=== PATIENT | female | born 1955 | race Caucasian/White ===

== ENCOUNTER 2017-08-12 17:06 | Emergency (ER) | payer BC ==
[~2017-08-12] VITALS: Ht 165.1 cm; Wt 90.0 kg
[2017-08-12 17:08] VITALS: BP 134/70; PULSE 86; RESP 14; TEMP 98.6; O2SAT 98
[2017-08-12] MEDS ORDERED: ASPI-516 PO (17:19)
[2017-08-12] MEDS ORDERED: PROP10TA6 PO (17:19)
[2017-08-12] MEDS ORDERED: NEXI40CA PO (17:19)
[2017-08-12] MEDS ORDERED: LEXA10TA PO (17:22)
--- NOTE | 2017-08-12 17:41 | PD ---
HPI Chief Complaint: Injury Time Seen by Provider: 17:13 Travel History International Travel<30 days: No Contact w/Intl Traveler<30days: No Traveled to known affect area: No History of Present Illness HPI 62-year-old female arrives with severe pain in the right ankle after she fell in her bathroom. She was getting dressed when she heard a popping sound from the ankle and fell to the ground causing severe pain. She has been unable to walk. Active or passive range of motion is painful. Her pain is constant. She did not hit her head or cause injury otherwise in association with the fall. The fall occurred about 45 minutes prior to ER arrival. PFSH Past Medical History Anxiety: Yes Cancer: Yes (kidney and ovaryan) Cardiovascular Problems: Yes Chemotherapy: Yes (kidney/ovarian) Diminished Hearing: No Genitourinary: Yes Hypertension: Yes Medical other: Yes Neurologic: Yes Tetanus Vaccination: < 5 Years Influenza Vaccination: Yes ?: Not : 1 Past Surgical History Section: Yes (x1) Gynecologic Surgery: Yes Hysterectomy: Yes Social History Alcohol Use: No (pt denies ) Tobacco Use: No (quit 25 years ago) Substance Use: No Allergies-Medications (Allergen,Severity, Reaction): Coded Allergies: codeine (Verified Adverse Reaction, Unknown, nauseas, 08/12/17) Reported Meds & Prescriptions Reported Meds & Active Scripts Active Percocet (Oxycodone-Acetaminophen) 5-325 mg Tab 1 Tab PO Q6H PRN Reported Lexapro (Escitalopram Oxalate) 10 Mg Tab 10 Mg PO DAILY Aspirin 81 Mg Chew 81 Mg PO DAILY Propranolol (Propranolol HCl) 10 Mg Tab 10 Mg PO DAILY Nexium (Esomeprazole DR) 40 Mg Capdr 40 Mg PO DAILY Review of Systems Genitourinary: Positive: Other (history of ovarian cancer, recently underwent surgery) Musculoskeletal: Positive: Limited ROM, Pain Neurologic: No: Weakness, Dizziness, Syncope, Focal Abnormalities, Coordination Problem Physical Exam Narrative GENERAL: 60-year-old female well-nourished well-developed mild to moderate distress secondary to pain from fall pleasant cooperative SKIN: Focused skin assessment warm/dry. HEAD: Atraumatic. Normocephalic. MUSCULOSKELETAL: There is tenderness from the knee through the midportion of the foot on the right. There is swelling overlying the lateral malleolus on the right side. There is no obvious musculoskeletal deformity otherwise. 2+ dorsalis pedis bilaterally. Patient unable to ambulate due to pain NEUROLOGICAL: Awake and alert. No obvious cranial nerve deficits. Motor grossly within normal limits. Normal speech. PSYCHIATRIC: Appropriate mood and affect; insight and judgment normal. Data Data Last Documented VS Vital Signs Date Time Temp Pulse Resp B/P (MAP) Pulse Ox O2 Delivery O2 Flow Rate FiO2 08/12/17 18:30 97.9 76 16 130/78 (95) 99 08/12/17 17:19 Room Air Vital signs reviewed Orders Orders Ankle, Complete ([id number]) (08/12/17 17:22) Foot, Complete ([id number]) (08/12/17 17:22) Tibia/Fibula (Ap/Lat) (08/12/17 17:22) Ice / Cold Pack PRN (08/12/17 17:22) Splint Or Brace Apply/Monitor (08/12/17 18:13) Crutches (08/12/17 ) Ed Discharge Order (08/12/17 18:22) Fiberglass Short Leg Splint Ad (08/12/17 ) Fiberglass Sugartong Sp Ad Sl (08/12/17 ) MDM Medical Decision Making Medical Screen Exam Complete: Yes Emergency Medical Condition: Yes Medical Record Reviewed: Yes Differential Diagnosis ankle fracture, ankle sprain, foot fracture, proximal fibula fracture Narrative Course Last Impressions Tibia/Fibula X-Ray 08/12/171721 Signed Impressions: Service Date/Time: Saturday, August 12, 2017 17:36 - CONCLUSION: Nondisplaced distal shaft fibular fracture. Cliff Cardenas MD Foot X-Ray 08/12/171721 Signed Impressions: Service Date/Time: Saturday, August 12, 2017 17:28 - CONCLUSION: No evidence of recent bony injury. Cliff Cardenas MD Ankle X-Ray 08/12/171721 Signed Impressions: Service Date/Time: Saturday, August 12, 2017 17:33 - CONCLUSION: Nondisplaced distal fibular fracture. Cliff Cardenas MD long posterior crutches follow up upon returning home pt verbalized understanding along with , both amenable with plan Diagnosis Primary Impression: Fracture of distal fibula Qualified Codes: S82.831A - Other fracture of upper and lower end of right fibula, initial encounter for closed fracture Referrals: Orthopaedic Surgeon ANGULATED DISTAL FIBULAR FRACTURE Mold Maintenance Technician ANGULATED DISTAL FIBULAR FRACTURE Additional Instructions: PLEASE CALL TO MAKE AN APPOINTMENT WITH EITHER AN ORTHOPEDIC SURGEON OR A AIRPORT SALES AGENT EARLY NEXT WEEK, IDEALLY MONDAY OR MONDAY. PLEASE ELEVATE THE FOOT AT NIGHT AND APPLY ICE FOR COMFORT AND TO REDUCE SWELLING. Med/Other Pt SpecificInfo: Prescription(s) given Scripts Oxycodone-Acetaminophen (Percocet) 5-325 mg Tab 1 TAB PO Q6H Y for PAIN SCALE 6 TO 10, #12 TAB 0 Refills Prov: Cuba Worthington MD 08/12/17 Disposition: 01 DISCHARGE HOME Condition: Stable Cuba Worthington MD Aug 12, 2017 17:41
[2017-08-12] MEDS ORDERED: PERC5TAB12 PO (18:21)
[2017-08-12 18:30] VITALS: BP 130/78; TEMP 97.9
--- NOTE | 2017-08-12 18:37 | RADRPT ---
EXAM DATE/TIME: 08/12/2017 17:28 [facility] COMPARISON: No previous studies available for comparison. INDICATIONS : Pain post fall. MEDICAL HISTORY : None. SURGICAL HISTORY : None. ENCOUNTER: Initial ACUITY: 1 day PAIN SCORE: 5/10 LOCATION: Right Foot. FINDINGS: Three view examination of the right foot demonstrates no soft tissue swelling, dislocation, or fractu re. The tarsal bones appear intact. The interphalangeal and metatarsophalangeal joints are intact. The calcaneus is intact. Bony mineralization is normal. CONCLUSION: No evidence of recent bony injury. Cliff Cardenas MD on August 12, 2017 at 18:34 Board Certified Radiologist. This report was verified electronically.
--- NOTE | 2017-08-12 18:37 | RADRPT ---
EXAM DATE/TIME: 08/12/2017 17:36 [facility] COMPARISON: No previous studies available for comparison. INDICATIONS : Pain post fall. MEDICAL HISTORY : None. SURGICAL HISTORY : None. ENCOUNTER: Initial ACUITY: 1 day PAIN SCORE: 5/10 LOCATION: Right Lower leg. FINDINGS: There is an oblique fracture through the lateral cortex of the distal shaft of the fibula without dis placement or angulation. The tibia appears intact. Mild soft tissue swelling about the lateral ankl e. CONCLUSION: Nondisplaced distal shaft fibular fracture. Cliff Cardenas MD on August 12, 2017 at 18:35 Board Certified Radiologist. This report was verified electronically.
--- NOTE | 2017-08-12 18:45 | RADRPT ---
EXAM DATE/TIME: 08/12/2017 17:33 [facility] COMPARISON: No previous studies available for comparison. INDICATIONS : Pain post fall. MEDICAL HISTORY : None. SURGICAL HISTORY : None. ENCOUNTER: Initial ACUITY: 1 day PAIN SCORE: 5/10 LOCATION: Right Ankle. FINDINGS: There is a nondisplaced oblique fracture through the distal diametaphysis of the fibula. The distal tibia is intact and the ankle mortise is intact. Moderate lateral and anterior soft tissue swelling. No radiopaque foreign bodies. CONCLUSION: Nondisplaced distal fibular fracture. Cliff Cardenas MD on August 12, 2017 at 18:43 Board Certified Radiologist. This report was verified electronically.
== END 2017-08-12 18:30 | disposition home or self-care (01) ==
LOC: NEPD 17:06
DX: S82.831A Other fracture of upper and lower end of right fibula, initial encounter for closed fracture (principal); F41.9 Anxiety disorder, unspecified; I10 Essential (primary) hypertension; W18.30XA Fall on same level, unspecified, initial encounter; Y92.002 Bathroom of unspecified non-institutional (private) residence as the place of occurrence of the external cause; Z79.82 Long term (current) use of aspirin; Z79.899 Other long term (current) drug therapy
CPT/HCPCS: 29505; 73590; 73610; 73630; 99283; E0113